=== PATIENT | female | born 1940 | race Caucasian/White ===

== ENCOUNTER 2017-09-12 07:46 | Inpatient (IN) | payer MEDICARE ==
[~2017-09-12] VITALS: Ht 170.2 cm; Wt 95.3 kg
[~2017-09-12 07:46] MED LIST: CALCIUM PO; CINNAMON; LORTAB 7.5-5001 EACH PO; LOVENOX40 MG/0.4 INJ; MOBIC7.5 MG PO; MULTIVITAMIN PO
[2017-09-12] MEDS ORDERED: ONDANSETRON HCL INJ 2 MG/ML VIAL IV STA (07:52)
[2017-09-12] MEDS ORDERED: SODIUM CHLORIDE 0.9% 1000ML 1,000 ML IV STA (07:52)
[2017-09-12] MEDS ORDERED: HYDROMORPHONE 1MG/1ML INJ IV STA (07:52)
[2017-09-12] MEDS ORDERED: DIATRIZOATE MEGL/DIATRIZOA SOD 30 ML BTL PO ONE (08:08)
[2017-09-12] MEDS ORDERED: SODIUM CHLORIDE 0.9% 1000ML 1,000 ML ONE (08:17)
[2017-09-12 08:30] LABS: BASOPHILS % 0.2 % (0.0-1.0); HEMATOCRIT 43.3 % (34.2-44.1); HEMOGLOBIN 14.7 g/dL (12.0-16.0); LYMPHOCYTES # (AUTO) 1.4 (1.0-3.2); LYMPHOCYTES % 7.5 % (18.0-39.1); MEAN CORPUSCULAR HEMOGLOBIN 32.6 pg (28-32); MEAN CORPUSCULAR HGB CONC 33.9 g/dL (31-35); MONOCYTES # (AUTO) 1.3 (0.2-0.8); MONOCYTES % 7.1 % (4.4-11.3); NEUTROPHILS # (AUTO) 15.2 (2.1-6.9); NEUTROPHILS % 84.4 % (38.7-80.0); PLATELET COUNT 213 x10e3/uL (140-360); RED BLOOD COUNT 4.51 x10e6/uL (3.6-5.1); RED CELL DISTRIBUTION WIDTH 12.7 % (11.7-14.4)
[2017-09-12 08:47] LABS: ALBUMIN 3.6 g/dL (3.5-5.0); ALBUMIN/GLOBULIN RATIO 0.8 (0.8-2.0); ANION GAP 15.7 mmol/L (8-16); CALCIUM 9.4 mg/dL (8.4-10.2); CREATININE, SERUM 1.05 mg/dL (0.57-1.11); POTASSIUM 3.7 mmol/L (3.5-5.1)
--- NOTE | 2017-09-12 09:15 | Diagnostic Imaging Report ---
EXAMINATION: CHEST SINGLE (PORTABLE) 09/12/2017 7:52 AM COMPARISON: 06/03/2015 INDICATION: Diverticulitis DISCUSSION: LINES: None. LUNGS: The lungs are well inflated and clear. No pneumonia or pulmonary edema. PLEURA: No pleural effusion or pneumothorax. HEART AND MEDIASTINUM: The cardiomediastinal silhouette is unremarkable. BONES AND SOFT TISSUES: No acute osseous lesion. The soft tissues are normal. IMPRESSION: No acute cardiopulmonary disease. Leroy Stone MD Signed by: Dr. Leroy Stone M.D. on 09/12/2017 9:11 AM
--- NOTE | 2017-09-12 10:48 | Diagnostic Imaging Report ---
EXAM: CT Abdomen and Pelvis WITH contrast INDICATION: Right lower quadrant pain COMPARISON: None. TECHNIQUE: Abdomen and pelvis were scanned utilizing a multidetector helical scanner from the lung base to the ischial tuberosities after administration of IV contrast. Coronal and sagittal reformations were obtained. Routine protocol was performed. Scan was performed when during portal venous phase. IV CONTRAST: 100 mL of Isovue-370 ORAL CONTRAST: Gastroview RADIATION DOSE: Total DLP: 724.25 mGy*cm Estimated effective dose: DLP x 0.015 mSv COMPLICATIONS: None FINDINGS: LINES and TUBES: None. LOWER THORAX: Bibasilar atelectasis and scarlike opacities HEPATOBILIARY: Mild, wedge-shaped focus of enhancement at the periphery of the right hepatic lobe (series 2, image 16) is probably a vascular shunt. Otherwise no focal hepatic lesions. No biliary ductal dilation. GALLBLADDER: No radio-opaque stones or sludge. No wall thickening. SPLEEN: No splenomegaly. PANCREAS: No focal masses or ductal dilatation. ADRENALS: No adrenal nodules KIDNEYS/URETERS: Kidneys enhance symmetrically. No hydronephrosis. No cystic or solid mass lesions. No stones. GI TRACT: The appendix is prominent, with enhancing diane and a diameter of 1.0 cm. There is surrounding fat stranding. There are small foci of extraluminal air and fluid (series 2, image 56 and 59), suspicious for contained perforation. There are numerous diverticula throughout the colon. No bowel obstruction. PELVIC ORGANS/BLADDER: Unremarkable. LYMPH NODES: No lymphadenopathy. VESSELS: There is moderate atherosclerotic disease in the aorta and major arterial branches. There is ectasia of the infrarenal abdominal aorta, measuring up to 3.4 cm. PERITONEUM / RETROPERITONEUM: No free air or fluid. BONES: Multilevel degenerative changes of the thoracic and lumbar spine. SOFT TISSUES: Unremarkable. IMPRESSION: Acute appendicitis with contained perforation. The findings were discussed with Dr. Butler at 10:39 AM on 09/12/2017 Leroy Stone MD Signed by: Dr. Leroy Stone M.D. on 09/12/2017 10:45 AM
[2017-09-12] MEDS ORDERED: CEFOXITIN 2GM/ D5W 50ML 50 ML IV ONE (11:15)
[2017-09-12] MEDS ORDERED: ONDANSETRON HCL INJ 2 MG/ML VIAL IV PRN ×2 (11:15→14:30)
[2017-09-12] MEDS ORDERED: HYDROMORPHONE 1MG/1ML INJ IV PRN ×2 (11:15→23:30)
--- OUTSIDE RECORDS SUMMARY | 2017-09-12 11:44 | XMS REPORT ---
[facility] Address Unknown Phone Unavailable Care Team Providers Care Drag Sawyer Name Role Phone MOODY OCONNOR Unavailable Unavailable Problems This patient has no known problems. Allergies, Adverse Reactions, Alerts This patient has no known allergies or adverse reactions. Medications This patient has no known medications. Results Test Description Test Time Test Comments Text Results Atomic Results Result Comments CHEST SINGLE (PORTABLE) [place] [address] Patient Name: RUBIO BAHENA MR #: [id number] : 1940 Age/Sex: 77/F Req #: [id number] Adm Physician: Ordered by: MOODY OCONNOR MD Report #: [id number] Location: ER Room/Bed: Procedure: [id number] DX/CHEST SINGLE (PORTABLE) Exam Date: 09/12/17 Exam Time: 0900 REPORT STATUS: Signed EXAMINATION: CHEST SINGLE (PORTABLE) 09/12/2017 7:52 AM COMPARISON: 06/03/2015 INDICATION: Diverticulitis DISCUSSION: LINES: None. LUNGS: The lungs are well inflated and clear. No pneumonia or pulmonary edema. PLEURA: No pleural effusion or pneumothorax. HEART AND MEDIASTINUM: The cardiomediastinal silhouette is unremarkable. BONES AND SOFT TISSUES: No acute osseous lesion. The soft tissues are normal. IMPRESSION: No acute cardiopulmonary disease. Gladys Stone MD Signed by: Dr. Gladys Stone M.D. on 09/12/2017 9:11 AM Dictated By: GLADYS STONE MD 0 Transcribed By: MIGNON on 09/12/17910 COPY TO: MOODY OCONNOR MD CT ABDOMEN/PELVIS W [place] [address] Patient Name: RUBIO BAHENA MR #: [id number] : 1940 Age/Sex: 77/F Req #: [id number] [facility] [place] Physician: Ordered by: MOODY OCONNOR MD Report #: [id number] Location: ER Room/Bed: Procedure: [id number] CT/CT ABDOMEN/PELVIS W Exam Date: 09/12/17 Exam Time : 1005 REPORT STATUS: Signed EXAM: CT Abdomen and Pelvis WITH contrast INDICATION: Right lower quadrant pain COMPARISON: None. TECHNIQUE: Abdomen and pelvis were scanned utilizing a multidetector helical scanner from the lung base to the ischial tuberosities after administration of IV contrast. Coronal and sagittal reformations were obtained. Routine protocol was performed. Scan was performed when during portal venous phase. IV CONTRAST: 100 mL of Isovue-370 ORAL CONTRAST: Gastroview RADIATION DOSE: Total DLP: 724.25 mGy*cm Estimated effective dose: DLP x 0.015 mSv COMPLICATIONS: None FINDINGS: LINES and TUBES: None. LOWER THORAX: Bibasilar atelectasis and scarlike opacities HEPATOBILIARY: Mild, wedge-shaped focus of enhancement at the periphery of the right hepatic lobe (series 2, image 16 ) is probably a vascular shunt. Otherwise no focal hepatic lesions. No biliary ductal dilation. GALLBLADDER: No radio-opaque stones or sludge. No wall thickening. SPLEEN: No splenomegaly. PANCREAS: No focal masses or ductal dilatation. ADRENALS: No adrenal nodules KIDNEYS/URETERS: Kidneys enhance symmetrically. No hydronephrosis. No cystic or solid mass lesions. No stones. GI TRACT: The appendix is prominent, with enhancing diane and a diameter of 1.0 cm. There is surrounding fat stranding. There are small foci of extraluminal air and fluid (series 2, image 56 and 59), suspicious for contained perforation. There are numerous diverticula throughout the colon. No bowel obstruction. PELVIC ORGANS/BLADDER: Unremarkable. LYMPH NODES: No lymphadenopathy. VESSELS : There is moderate atherosclerotic disease in the aorta and major arterial branches. There is ectasia of the infrarenal abdominal aorta, measuring up to 3.4 cm. PERITONEUM / RETROPERITONEUM: No free air or fluid. BONES: Multilevel degenerative changes of the thoracic and lumbar spine. SOFT TISSUES: Unremarkable. IMPRESSION: Acute appendicitis with contained perforation. The findings were discussed with Dr. Oconnor at 10:39 AM on 09/12/2017 Gladys Stone MD Signed by: Dr. Gladys Stone M.D. on 09/12/2017 10:45 AM Dictated By: GLADYS STONE MD [id number] Transcribed By: MIGNON on 09/12/17 1045 COPY TO: MOODY OCONNOR MD
[2017-09-12] MEDS: SODIUM CHLORIDE 0.9% 1000ML 1,000 ML IV SCH ×2 (11:49→19:03)
[2017-09-12] MEDS ORDERED: BUPIVACAINE 0.25% 30ML SDV INJ ONE (11:55)
[2017-09-12] MEDS ORDERED: CEFOXITIN 1GM/ DEXTROSE 50ML 100 ML IV ONE (12:04)
[2017-09-12 12:07] LABS: INR 1.16; PROTHROMBIN TIME 13.9 seconds (11.9-14.5)
[2017-09-12 12:08] LABS: PARTIAL THROMBOPLASTIN TIME 30.3 seconds (23.8-35.5)
[2017-09-12] MEDS ORDERED: CEFOXITIN SODIUM 2 G/VIAL IV ONE (12:30)
[2017-09-12] MEDS ORDERED: SODIUM CHLORIDE 0.9% 50ML 50 ML ONE (12:49)
[2017-09-12] MEDS ORDERED: IOPAMIDOL 370 MG/ML 200 ML INFUS..BTL INJ ONE (12:50)
[2017-09-12] MEDS ORDERED: CEFOXITIN 1GM/ DEXTROSE 50ML 50 ML IV SCH (14:00)
[2017-09-12] MEDS ORDERED: CEFOXITIN SOD 1 GM VIAL IV SCH (14:00)
[2017-09-12] MEDS: D5.45%NS/KCL 20MEQ 1,000 ML IV SCH ×2 (14:22→21:35)
[2017-09-12] MEDS ORDERED: CEFTRIAXONE SOD 1 GM VIAL IV SCH (14:30)
[2017-09-12 15:59] VITALS: BP 110/54
[2017-09-12] MEDS ORDERED: ROCURONIUM BROMIDE 10 MG/ML 5ML VIAL ONE (16:02)
[2017-09-12] MEDS ORDERED: ONDANSETRON HCL INJ 2 MG/ML VIAL ONE (16:02)
[2017-09-12] MEDS ORDERED: LIDOCAINE HCL 2% JELLY 5 ML TUBE ONE (16:02)
[2017-09-12] MEDS ORDERED: LIDOCAINE HCL 2% LOCAL INJ 5 ML SDV VIAL INJ ONE (16:02)
[2017-09-12] MEDS ORDERED: ACETAMINOPHEN 1000 MG/100 ML IV ONE (16:02)
[2017-09-12] MEDS ORDERED: PROPOFOL IV EMULSION 10 MG/ML 20 ML VIAL ONE (16:02)
[2017-09-12] MEDS ORDERED: GLYCOPYRROLATE INJ 1MG/ 5 ML SYR ONE (16:02)
[2017-09-12] MEDS ORDERED: NEOSTIGMINE 5 MG/5ML SYR ONE (16:02)
[2017-09-12] MEDS ORDERED: SEVOFLURANE INHAL SOLN 250 ML PEN BTL ONE (16:02)
[2017-09-12 16:16] VITALS: BP 110/54
[2017-09-12 16:29] VITALS: BP 110/54
[2017-09-12] MEDS: PANTOPRAZOLE 40 MG 10ML VIAL IV SCH (17:22)
[2017-09-12] MEDS: METRONIDAZOLE 500MG/NS 100ML 100 ML IV SCH (17:23)
--- NOTE | 2017-09-12 17:38 | Operative Report ---
DATE OF PROCEDURE: September 12, 2017 PREOPERATIVE DIAGNOSIS: Acute appendicitis with localized perforation. POSTOPERATIVE DIAGNOSES 1. Acute appendicitis with localized perforation. 2. Pelvic abscess and pelvic peritonitis. OPERATIONS PERFORMED: Laparoscopic appendectomy and peritoneal irrigation. ANESTHESIA: General endotracheal. ESTIMATED BLOOD LOSS: Minimal. DRAINS: None. COMPLICATIONS: None. INDICATIONS AND FINDINGS: A 77-year-old otherwise healthy female admitted with abdominal pain through the emergency room. The patient stated that she had right lower quadrant pain about 2 weeks ago, attributed to history of diverticulitis that she had, and it got better and paid no attention. Three days ago, it got worse and today it even increased in intensity, reason for which she came to the emergency room. Emergency room the workup revealed by CAT scan appendicitis with localized perforation in the right lower quadrant. White count was 18,000. 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 The appendix was necrotic and perforated, almost liquified in its distal three-fourths. The perforation appeared to be located distal to the appendiceal cecal junction so that we were able to transect the appendix through a soft and pliable cecum. Because of the gangrene, we had to remove the appendix piecemeal in several different pieces. All attempts were made to prevent any tissue left behind. A 10 mm flat Kieran-Doshi drain was placed to drain the gutter and pelvic cavity, brought out through the right lower quadrant trocar site. The family was informed postoperatively of the findings. They are aware that the possibility of postoperative complications such as abscess formation and small bowel obstruction are significantly increased due to the pathology of this case. DESCRIPTION OF THE PROCEDURE: With the patient lying on the operative table in the supine position, after administration of general endotracheal anesthesia, she was prepped and draped for laparoscopic appendectomy. The procedure was begun by establishing the pneumoperitoneum in the umbilical site after a stab wound was made at that location and the saline drop test was performed. Pneumoperitoneum was insufflated to 15 mm of pressure and then, the 10/11 trocar placed in that location. We eventually placed a 11/12 trocar in the right upper quadrant and a 5 mm trocar in the right lower quadrant. We began the dissection by mobilizing the cecum and the omentum from the abdominal right lateral wall until we were able to initially identify the tip of the appendix gangrenous in the pelvis. We continued the mobilization along the white line and the right border until we identified the ascending colon both laterally and medially as well as the ileocecal junction. We then mobilized enough the cecum and ascending colon to be able to staple the base of the appendix across the cecum where it was soft and pliable with the Endo AMY with the blue load. We continued the dissection retrogradely. The mesoappendix was mobilized and the blood supply to the appendix was taken down that with electrocautery in different layers as there was not a point where it could be cleanly stapled with the Endo AMY. After we detached the appendix, as we continued the dissection mobilizing the cecum and the appendix at some point, the cecum and the proximal appendix from the distal part of the appendix. The distal part of the appendix was pretty much macerated and almost liquified. We then removed the proximal appendix by placing it in an endobag and pulling it out through the 11/12 trocar and then, we identified the tip of the appendix stuck to the lateral wall and the pelvis and then mobilized it proximally until we were able to detach the remnant part of the appendix from the retroperitoneum. We diligently removed all remaining appendiceal tissue. We then placed it in an endobag and removed it through the same trocar. We then copiously irrigated the pelvis and right lower quadrant with saline solution. We ascertained there was no bleeding and no bowel injury. We then placed a 10 mm flat Kieran-Doshi drain to drain the right gutter and pelvis and the appendiceal bed and brought it out through the right lower quadrant trocar 5 mm size and secured it there with 2-0 silk and connected it to self suction. We inspected the operative field, irrigated it again. There was no bleeding and there was no evidence of bile leakage. At that point, we released the pneumoperitoneum and closed the umbilical 10/11 trocar as well as the right upper quadrant 11/12 trocar with 0 Vicryl. The wounds were copiously irrigated with saline and then, the skin of all the ports was closed using karla. Sterile dressing was applied. The patient tolerated the procedure well and taken to recovery room in stable condition. Job#: [id number] PAT
[2017-09-12] MEDS: HYDROMORPHONE 1MG/1ML INJ IV PRN (18:36)
[2017-09-12 20:09] VITALS: BP 103/53
[2017-09-12 21:44] VITALS: BP 103/53
[2017-09-12] MEDS ORDERED: ACETAMINOPHEN 1000 MG/100 ML IV PRN (23:30)
[2017-09-13] MEDS: CEFTRIAXONE SOD 1 GM VIAL IV SCH ×3 (00:05→23:17)
[2017-09-13 00:06] VITALS: BP 100/55
[2017-09-13] MEDS: METRONIDAZOLE 500MG/NS 100ML 100 ML IV SCH ×5 (00:10→23:17)
[2017-09-13] MEDS: SODIUM CHLORIDE 0.9% 1000ML 1,000 ML IV SCH ×2 (03:03→11:03)
[2017-09-13 04:00] VITALS: BP 93/54
[2017-09-13] MEDS: HYDROMORPHONE 1MG/1ML INJ IV PRN ×3 (06:35→18:49)
[2017-09-13 07:30] LABS: BASOPHILS # (AUTO) 0.1 (0.0-0.1); BASOPHILS % 0.5 % (0.0-1.0); EOSINOPHILS # (AUTO) 0.1 (0.0-0.4); EOSINOPHILS % 0.5 % (0.0-6.0); HEMOGLOBIN 11.1 g/dL (12.0-16.0); LYMPHOCYTES # (AUTO) 1.6 (1.0-3.2); LYMPHOCYTES % 16.6 % (18.0-39.1); MEAN CORPUSCULAR HEMOGLOBIN 32.5 pg (28-32); MEAN CORPUSCULAR HGB CONC 32.6 g/dL (31-35); MEAN CORPUSCULAR VOLUME 99.4 fL (81-99); MONOCYTES # (AUTO) 0.7 (0.2-0.8); MONOCYTES % 6.8 % (4.4-11.3); NEUTROPHILS # (AUTO) 7.2 (2.1-6.9); NEUTROPHILS % 75.1 % (38.7-80.0); PLATELET COUNT 151 x10e3/uL (140-360); RED BLOOD COUNT 3.42 x10e6/uL (3.6-5.1); RED CELL DISTRIBUTION WIDTH 13.1 % (11.7-14.4)
[2017-09-13 07:54] LABS: ANION GAP 10.7 mmol/L (8-16); BLOOD UREA NITROGEN 10 mg/dL (7-26); BUN/CREATININE RATIO 14 (6-25); CARBON DIOXIDE 23 mmol/L (22-29); CHLORIDE 108 mmol/L (98-107); CREATININE, SERUM 0.69 mg/dL (0.57-1.11); EST GLOMERULAR FILTRATION RATE > 60 ML/MIN (60-); GLUCOSE 125 mg/dL (74-118); POTASSIUM 3.7 mmol/L (3.5-5.1); SODIUM 138 mmol/L (136-145)
[2017-09-13 07:59] VITALS: BP 99/52
--- NOTE | 2017-09-13 08:44 | History and Physical ---
CHIEF COMPLAINT: Intense abdominal pain. HISTORY OF PRESENT ILLNESS: This is a 77-year-old white woman who presented to [facility] with a 2-week history of worsening right lower quadrant abdominal pain. The patient became much worse 2 days prior to admission and unbearable on the day of admission. Soon after admission, the patient was found to have acute appendicitis with local perforation and pelvic peritonitis. The patient was seen by her general surgeon, namely Dr. Randal Hilario, who performed successful laparoscopic appendectomy and peritoneal irrigation. After the surgery, the patient had a Kieran-Doshi drain placed. On admission, the patient's white blood cell count was 18,000 with 84% segmented neutrophils. Today's white blood cell count is 9500 with 75% segmented neutrophils. The patient's BUN and creatinine on admission was 14 and 1.05 respectively. Today, it is 10 and 0.69 respectively. On admission, the patient did undergo a CT of the abdomen and pelvis prior to surgery that revealed acute appendicitis with a contained perforation. The patient was admitted for further evaluation and treatment. REVIEW OF SYSTEMS: GENERAL: The patient was experiencing fever and chills for 2 days prior to admission. Weight has been stable. HEENT: No headaches. No visual changes. CARDIOVASCULAR/RESPIRATORY: No chest pain. GI: Right lower quadrant abdominal pain for 2 weeks. Much worse in the last 2 days prior to admission. The patient has had no appetite for 2 weeks also. : No UTI symptoms. NEUROMUSCULAR: No limb weakness or numbness. PAST MEDICAL HISTORY 1. Obesity. 2. Lumbar disk disease. 3. Hypertriglyceridemia. 4. Prediabetes. 5. Hypertensive heart disease. 6. Bilateral knee arthritis. 7. Statin intolerance. 8. Diverticular disease. PAST SURGICAL HISTORY 1. 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 2. Right total knee replacement in July of 2013. 3. Laparoscopic appendectomy performed yesterday, September 12, 2017. ALLERGIES 1. SULFA. 2. LEVOFLOXACIN. FAMILY HISTORY: Noncontributory. SOCIAL HISTORY: The woman is . She lives alone. The patient is currently retired. No history of tobacco or alcohol use, but she was exposed to second-hand tobacco smoke throughout her life. HOME MEDICATIONS: 1. Multivitamins once daily. 2. Vitamin B12 500 mcg daily. 3. [place]-3 fish oil 2000 mg bid. 4. Biotin one daily. 5. Calcium-Vitamin D3 one daily. 6. Aspirin 81 mg daily. 7. Vitamin D3 2000 units daily. 8. Fluoxetine 20 mg daily. PHYSICAL EXAMINATION GENERAL: She is awake, alert and fully oriented. No distress. Very pleasant and cooperative with exam. Her adult daughter is at bedside. VITALS: Blood pressure at this time is 99/52, pulse 82, respiratory rate 18, temperature 98.1. The patient's temperature did get as high as 100.8 at midnight early this morning. The patient's height is 5 feet 7 inches, weight 210 pounds, calculated body mass index 33. INTEGUMENT: Skin is warm and dry. No pallor of conjunctivae. HEENT: Anicteric sclerae. Moist mucous membranes. NECK: Supple. CARDIOVASCULAR: Regular rate and rhythm. LUNGS: No rales. No rhonchi. ABDOMEN: Soft. Normal bowel sounds appreciated. The patient has a Kieran-Doshi drain in the right lower quadrant. EXTREMITIES: No edema or deformity. NEUROLOGIC: Intact. DIAGNOSES 1. Sepsis secondary to acute perforated appendicitis with peritonitis. 2. Status post laparoscopic appendectomy. 3. Prediabetes. PLAN 1. Intravenous fluids. 2. Follow renal function. 3. Intravenous antibiotics. 4. Mobilize with physical therapy. 5. Encourage incentive spirometer usage to prevent atelectasis. 6. Advance diet as per surgery. I spent an hour in the care of the patient. Job#: [id number] KEVIN NOEL
[2017-09-13] MEDS: D5.45%NS/KCL 20MEQ 1,000 ML IV SCH ×2 (10:22→22:53)
[2017-09-13 12:36] VITALS: BP 118/60
[2017-09-13] MEDS: PANTOPRAZOLE 40 MG 10ML VIAL IV SCH (14:30)
[2017-09-13] MEDS ORDERED: FENTANYL CITRATE/PF 100MCG/2 ML INJ ONE (14:54)
[2017-09-13 17:00] VITALS: BP 102/58
[2017-09-13 20:00] VITALS: BP 103/58
[2017-09-14] VITALS (7 sets, daily range): BP systolic 102–124; BP diastolic 50–61
[2017-09-14] MEDS: HYDROMORPHONE 1MG/1ML INJ IV PRN ×2 (04:19→09:28)
[2017-09-14] MEDS: METRONIDAZOLE 500MG/NS 100ML 100 ML IV SCH ×4 (05:50→23:39)
[2017-09-14] MEDS ORDERED: ENOXAPARIN 30 MG/0.3 ML SYR SC NR (06:30)
[2017-09-14 06:50] LABS: BASOPHILS % 0.5 % (0.0-1.0); EOSINOPHILS # (AUTO) 0.1 (0.0-0.4); EOSINOPHILS % 1.7 % (0.0-6.0); HEMATOCRIT 32.9 % (34.2-44.1); HEMOGLOBIN 10.8 g/dL (12.0-16.0); LYMPHOCYTES # (AUTO) 1.8 (1.0-3.2); MEAN CORPUSCULAR HEMOGLOBIN 32.6 pg (28-32); MEAN CORPUSCULAR HGB CONC 32.8 g/dL (31-35); MEAN CORPUSCULAR VOLUME 99.4 fL (81-99); MONOCYTES # (AUTO) 0.7 (0.2-0.8); MONOCYTES % 8.9 % (4.4-11.3); NEUTROPHILS # (AUTO) 5.3 (2.1-6.9); NEUTROPHILS % 65.5 % (38.7-80.0); PLATELET COUNT 156 x10e3/uL (140-360); RED BLOOD COUNT 3.31 x10e6/uL (3.6-5.1); RED CELL DISTRIBUTION WIDTH 12.7 % (11.7-14.4)
[2017-09-14 07:16] LABS: ALANINE AMINOTRANSFERASE 7 IU/L (0-55); ALBUMIN 2.2 g/dL (3.5-5.0); ALBUMIN/GLOBULIN RATIO 0.6 (0.8-2.0); ALKALINE PHOSPHATASE 59 IU/L (40-150); ANION GAP 11.2 mmol/L (8-16); BLOOD UREA NITROGEN 6 mg/dL (7-26); BUN/CREATININE RATIO 9 (6-25); CALCIUM 8.3 mg/dL (8.4-10.2); CARBON DIOXIDE 24 mmol/L (22-29); CHLORIDE 104 mmol/L (98-107); CREATININE, SERUM 0.67 mg/dL (0.57-1.11); EST GLOMERULAR FILTRATION RATE > 60 ML/MIN (60-); GLUCOSE 131 mg/dL (74-118); POTASSIUM 4.2 mmol/L (3.5-5.1); SODIUM 135 mmol/L (136-145)
[2017-09-14 11:48] LABS: BILIRUBIN,URINE NEGATIVE (NEGATIVE); KETONES,URINE NEGATIVE (NEGATIVE); LEUKOCYTE ESTERASE ,URINE 2+ (NEGATIVE); NITRITE,URINE NEGATIVE (NEGATIVE); PROTEIN,URINE DIPSTICK NEGATIVE (NEGATIVE); URINE UROBILINOGEN 0.2 mg/dL (0.2 - 1)
[2017-09-14 11:50] LABS: CLARITY,URINE SL CLOUDY (CLEAR); COLOR,URINE YELLOW (YELLOW)
[2017-09-14 11:57] LABS: BACTERIA,URINE RARE /HPF; EPITHELIAL CELLS,URINE FEW /LPF
[2017-09-14] MEDS: CEFTRIAXONE SOD 1 GM VIAL IV SCH ×2 (12:00→23:38)
[2017-09-14] MEDS: D5.45%NS/KCL 20MEQ 1,000 ML IV SCH (12:49)
[2017-09-14] MEDS: PANTOPRAZOLE 40 MG 10ML VIAL IV SCH (14:30)
[2017-09-14] MEDS ORDERED: HYDROMORPHONE 1MG/1ML INJ IV PRN (15:15)
[2017-09-14] MEDS: HYDROCODONE/APAP 5MG-325MG TAB PO PRN (20:29)
[2017-09-15] VITALS (8 sets, daily range): BP systolic 99–127; BP diastolic 51–64
[2017-09-15] MEDS: D5.45%NS/KCL 20MEQ 1,000 ML IV SCH (02:08)
[2017-09-15] MEDS: METRONIDAZOLE 500MG/NS 100ML 100 ML IV SCH ×4 (05:04→23:27)
[2017-09-15] MEDS: HYDROCODONE/APAP 5MG-325MG TAB PO PRN ×3 (06:48→15:55)
[2017-09-15 07:12] LABS: BASOPHILS % 0.5 % (0.0-1.0); EOSINOPHILS # (AUTO) 0.3 (0.0-0.4); EOSINOPHILS % 3.9 % (0.0-6.0); HEMATOCRIT 33.5 % (34.2-44.1); LYMPHOCYTES # (AUTO) 1.1 (1.0-3.2); LYMPHOCYTES % 16.9 % (18.0-39.1); MEAN CORPUSCULAR HEMOGLOBIN 32.4 pg (28-32); MEAN CORPUSCULAR HGB CONC 32.8 g/dL (31-35); MEAN CORPUSCULAR VOLUME 98.5 fL (81-99); MONOCYTES # (AUTO) 0.6 (0.2-0.8); MONOCYTES % 9.9 % (4.4-11.3); NEUTROPHILS # (AUTO) 4.3 (2.1-6.9); NEUTROPHILS % 68.5 % (38.7-80.0); PLATELET COUNT 188 x10e3/uL (140-360); RED CELL DISTRIBUTION WIDTH 12.5 % (11.7-14.4)
[2017-09-15 07:36] LABS: ALANINE AMINOTRANSFERASE 8 IU/L (0-55); ALBUMIN 2.3 g/dL (3.5-5.0); ALBUMIN/GLOBULIN RATIO 0.6 (0.8-2.0); ALKALINE PHOSPHATASE 60 IU/L (40-150); ANION GAP 12.7 mmol/L (8-16); BLOOD UREA NITROGEN 5 mg/dL (7-26); BUN/CREATININE RATIO 8 (6-25); CALCIUM 8.3 mg/dL (8.4-10.2); CARBON DIOXIDE 25 mmol/L (22-29); CHLORIDE 107 mmol/L (98-107); EST GLOMERULAR FILTRATION RATE > 60 ML/MIN (60-); GLUCOSE 123 mg/dL (74-118); POTASSIUM 3.7 mmol/L (3.5-5.1); SODIUM 141 mmol/L (136-145)
[2017-09-15] MEDS: CEFTRIAXONE SOD 1 GM VIAL IV SCH ×2 (11:43→23:27)
[2017-09-15] MEDS: PANTOPRAZOLE 40 MG 10ML VIAL IV SCH (13:39)
[2017-09-15] MEDS: ENOXAPARIN 30 MG/0.3 ML SYR SC SCH (17:22)
[2017-09-15] MEDS ORDERED: ACETAMINOPHEN 325 MG TAB PO PRN (21:30)
[2017-09-16] VITALS (8 sets, daily range): BP systolic 108–145; BP diastolic 53–68
[2017-09-16] MEDS: METRONIDAZOLE 500MG/NS 100ML 100 ML IV SCH ×3 (06:36→17:05)
[2017-09-16 07:12] LABS: BASOPHILS # (AUTO) 0.1 (0.0-0.1); BASOPHILS % 0.7 % (0.0-1.0); EOSINOPHILS # (AUTO) 0.3 (0.0-0.4); EOSINOPHILS % 3.5 % (0.0-6.0); HEMOGLOBIN 12.6 g/dL (12.0-16.0); LYMPHOCYTES # (AUTO) 1.4 (1.0-3.2); MEAN CORPUSCULAR HEMOGLOBIN 32.1 pg (28-32); MEAN CORPUSCULAR HGB CONC 33.2 g/dL (31-35); MEAN CORPUSCULAR VOLUME 96.7 fL (81-99); MONOCYTES # (AUTO) 0.7 (0.2-0.8); MONOCYTES % 9.1 % (4.4-11.3); NEUTROPHILS % 67.2 % (38.7-80.0); PLATELET COUNT 241 x10e3/uL (140-360); RED BLOOD COUNT 3.93 x10e6/uL (3.6-5.1); RED CELL DISTRIBUTION WIDTH 12.3 % (11.7-14.4)
[2017-09-16 07:26] LABS: ANION GAP 14.5 mmol/L (8-16); BLOOD UREA NITROGEN 5 mg/dL (7-26); BUN/CREATININE RATIO 8 (6-25); CALCIUM 8.9 mg/dL (8.4-10.2); CARBON DIOXIDE 24 mmol/L (22-29); CHLORIDE 106 mmol/L (98-107); CREATININE, SERUM 0.63 mg/dL (0.57-1.11); EST GLOMERULAR FILTRATION RATE > 60 ML/MIN (60-); GLUCOSE 136 mg/dL (74-118); POTASSIUM 3.5 mmol/L (3.5-5.1); SODIUM 141 mmol/L (136-145)
[2017-09-16] MEDS: CEFTRIAXONE SOD 1 GM VIAL IV SCH (11:43)
[2017-09-16] MEDS ORDERED: NEOMYCIN/POLYMYX/BACITR OINT 0.9 GM PKT TOP NR (12:30)
[2017-09-16] MEDS: PANTOPRAZOLE 40 MG 10ML VIAL IV SCH (14:01)
[2017-09-16] MEDS: ENOXAPARIN 30 MG/0.3 ML SYR SC SCH (17:05)
[2017-09-17] VITALS: BP 92/53
[2017-09-17] MEDS: CEFTRIAXONE SOD 1 GM VIAL IV SCH (01:14)
[2017-09-17] MEDS: METRONIDAZOLE 500MG/NS 100ML 100 ML IV SCH ×2 (01:14→05:37)
[2017-09-17 02:40] VITALS: BP 145/68
[2017-09-17 04:00] VITALS: BP 115/65
[2017-09-17 07:58] VITALS: BP 134/64
[2017-09-17 08:23] VITALS: BP 134/64
--- NOTE | 2017-09-17 08:57 | Discharge Summary ---
ADMIT DIAGNOSES 1. Sepsis secondary to acute perforated appendicitis with peritonitis. 2. Status post laparoscopic appendectomy. 3. Prediabetes. DISCHARGE DIAGNOSES 1. Status post laparoscopic appendectomy. 2. Sepsis secondary to Escherichia coli peritonitis, resolved. 3. Escherichia coli peritonitis, resolving. HOSPITAL COURSE: This is a 77-year-old white woman who was initially admitted to [facility] with the diagnosis of sepsis secondary to acute perforated appendix with peritonitis. During this hospitalization, the patient was actually found to have E. coli peritonitis. The patient underwent successful laparoscopic appendectomy during this hospitalization, which was performed by her surgeon, namely Dr. Lopez Hilario. The patient's hospitalization was unremarkable. The patient improved clinically after surgery and with intravenous antibiotics, namely metronidazole and ceftriaxone. The peritoneal cultures performed during this hospitalization did reveal 2 strains of E. coli bacterial species, but both were found to be pansensitive. The patient's hospitalization was unremarkable. The patient's sepsis resolved during this hospitalization. On admission, the patient's white blood cell count was 18,000 with 84% segmented neutrophils. On the day of discharge, the patient's white blood cell count was 7300 with 67% segmented neutrophils. The patient's condition on discharge was stable. On discharge, the patient was tolerating a regular diet. The patient also had a Kieran-Doshi drain placed during her surgery, but it was removed prior to discharge. DISCHARGE MEDICATIONS 1. Tramadol 50 mg 1 every 6 hours p.r.n. pain, 30 prescribed. 2. Augmentin 500 mg 1 p.o. t.i.d. for 5 days. 3. Multivitamins once daily. 4. Vitamin B12 500 mcg daily. 5. [place]-3 Fish Oil 2000 mg b.i.d. 6. Biotin once daily. 7. Calcium with vitamin D once daily. 8. Aspirin 81 mg daily. 9. Vitamin D3 2000 units daily. 10. Fluoxetine 20 mg daily. FOLLOWUP INSTRUCTIONS: The patient was instructed to follow up with Dr. Lopez Hilario in 1 week, and follow up with her attending, namely myself, Dr. Leann Boyle within 2 weeks. The patient was also told not to operate a motor vehicle when taking tramadol until she sees how this medication reacts. LEANN BOYLE MD Job#: [id number] RI cc:LOPEZ HILARIO MD
== END 2017-09-17 09:55 | disposition home or self-care (01) | DRG 853 ==
LOC: ER 07:46 → ERHOLD 11:41 → UNDOADMIN 11:41 → OR 11:54 → MED/SURG 14:25
PROVIDERS: ADMIT Internal Medicine; ATTEND Internal Medicine
PROC: 0DTJ4ZZ Resection of Appendix, Percutaneous Endoscopic Approach (ICD-10-PCS; 2017-09-12)
PROC: 0W9G4ZX Drainage of Peritoneal Cavity, Percutaneous Endoscopic Approach, Diagnostic (ICD-10-PCS; principal; 2017-09-12 12:00)
DX: A41.9 Sepsis, unspecified organism (principal); K35.2 Acute appendicitis with generalized peritonitis; I11.9 Hypertensive heart disease without heart failure; R73.09 Other abnormal glucose; B96.20 Unspecified Escherichia coli [E. coli] as the cause of diseases classified elsewhere; E66.9 Obesity, unspecified; Z68.32 Body mass index [BMI] 32.0-32.9, adult; M51.36 Other intervertebral disc degeneration, lumbar region
CPT/HCPCS: 36415; 71045; 74177; 80048; 80053; 81001; 82150; 83690; 85025; 85610; 85730; 87040; 87071; 87075; 87086; 87186; 87205; 88304; 93005; 99284; C1766; J0694; J0696; J1170; J1650; J2001; J2405; J7030; Q9967

== ENCOUNTER 2021-04-11 13:02 | Observation (INO) | payer MEDICARE ==
[~2021-04-11] VITALS: Ht 172.7 cm; Wt 90.3 kg
[2021-04-11 13:35] LABS: BASOPHILS # (AUTO) 0.1 (0.0-0.1); BASOPHILS % 0.9 % (0.0-1.0); EOSINOPHILS # (AUTO) 0.1 (0.0-0.4); EOSINOPHILS % 1.6 % (0.0-6.0); HEMATOCRIT 41.1 % (34.2-44.1); HEMOGLOBIN 13.1 g/dL (12.0-16.0); LYMPHOCYTES # (AUTO) 2.9 (1.0-3.2); LYMPHOCYTES % 41.4 % (18.0-39.1); MEAN CORPUSCULAR HEMOGLOBIN 31.9 pg (28-32); MEAN CORPUSCULAR HGB CONC 31.9 g/dL (31-35); MONOCYTES # (AUTO) 0.5 (0.2-0.8); MONOCYTES % 7.7 % (4.4-11.3); NEUTROPHILS # (AUTO) 3.4 (2.1-6.9); NEUTROPHILS % 48.1 % (38.7-80.0); PLATELET COUNT 249 x10e3/uL (140-360); RED BLOOD COUNT 4.11 x10e6/uL (3.6-5.1); RED CELL DISTRIBUTION WIDTH 12.1 % (11.7-14.4)
[2021-04-11 13:53] LABS: INR 0.91; PARTIAL THROMBOPLASTIN TIME 27.5 seconds (23.8-35.5); PROTHROMBIN TIME 12.5 seconds (11.9-14.5)
[2021-04-11 13:58] LABS: ALANINE AMINOTRANSFERASE 8 IU/L (0-55); ALBUMIN 3.6 g/dL (3.5-5.0); ALBUMIN/GLOBULIN RATIO 0.9 (0.8-2.0); ALKALINE PHOSPHATASE 60 IU/L (40-150); ANION GAP 15.9 mmol/L (8-16); BLOOD UREA NITROGEN 12 mg/dL (7-26); BUN/CREATININE RATIO 16 (6-25); CALCIUM 9.4 mg/dL (8.4-10.2); CARBON DIOXIDE 24 mmol/L (22-29); CHLORIDE 104 mmol/L (98-107); CREATINE KINASE 52 IU/L (29-168); CREATININE, SERUM 0.74 mg/dL (0.57-1.11); EST GLOMERULAR FILTRATION RATE 75 ML/MIN (60-); GLUCOSE 116 mg/dL (74-118); POTASSIUM 3.9 mmol/L (3.5-5.1); SODIUM 140 mmol/L (136-145)
[2021-04-11] MEDS ORDERED: SODIUM CHLORIDE 0.9% 100 ML ONE (15:16)
[2021-04-11] MEDS ORDERED: IOPAMIDOL 370 MG/ML 200 ML INFUS..BTL INJ ONE (15:18)
[2021-04-11] MEDS ORDERED: SODIUM CHLORIDE 0.9% 1000ML 1,000 ML IV STA (15:36)
[2021-04-11] MEDS ORDERED: SODIUM CHLORIDE 0.9% 1000ML 1,000 ML IV SCH (16:00)
[2021-04-11 16:07] LABS: CLARITY,URINE CLEAR (CLEAR); COLOR,URINE YELLOW (YELLOW); KETONES,URINE NEGATIVE (NEGATIVE); LEUKOCYTE ESTERASE ,URINE SMALL (NEGATIVE); NITRITE,URINE NEGATIVE (NEGATIVE); PROTEIN,URINE DIPSTICK NEGATIVE (NEGATIVE); URINE UROBILINOGEN 0.2 mg/dL (0.2 - 1)
[2021-04-11 16:23] LABS: BACTERIA,URINE FEW /HPF; EPITHELIAL CELLS,URINE FEW /LPF; RBC,URINE 0-5 /HPF (0-5); RENAL EPITHELIAL CELLS,URINE FEW; TRANSITIONAL EPI CELLS,URINE FEW; WBC,URINE (MAN) 21-50 /HPF (0-5)
[2021-04-11] MEDS ORDERED: CEFTRIAXONE 1 GM in SODIUM CHLORIDE 0.9% 50ML 50 ML IV SCH (16:30)
[2021-04-11 18:00] VITALS: BP 112/70
[2021-04-11] MEDS: CEFTRIAXONE 1 GM in SODIUM CHLORIDE 0.9% 50ML 50 ML IV SCH (18:30)
[2021-04-11] MEDS ORDERED: DEXTROSE 50% SYRINGE 50 ML IV PRN (18:30)
[2021-04-11 19:04] LABS: BASOPHILS % 0.8 % (0.0-1.0); EOSINOPHILS # (AUTO) 0.1 (0.0-0.4); EOSINOPHILS % 2.1 % (0.0-6.0); HEMATOCRIT 36.4 % (34.2-44.1); HEMOGLOBIN 11.9 g/dL (12.0-16.0); LYMPHOCYTES # (AUTO) 2.2 (1.0-3.2); LYMPHOCYTES % 42.2 % (18.0-39.1); MEAN CORPUSCULAR HEMOGLOBIN 32.6 pg (28-32); MEAN CORPUSCULAR HGB CONC 32.7 g/dL (31-35); MEAN CORPUSCULAR VOLUME 99.7 fL (81-99); MONOCYTES # (AUTO) 0.4 (0.2-0.8); MONOCYTES % 8.5 % (4.4-11.3); NEUTROPHILS # (AUTO) 2.4 (2.1-6.9); NEUTROPHILS % 46.2 % (38.7-80.0); PLATELET COUNT 217 x10e3/uL (140-360); RED BLOOD COUNT 3.65 x10e6/uL (3.6-5.1); RED CELL DISTRIBUTION WIDTH 12.2 % (11.7-14.4)
[2021-04-11 20:46] VITALS: BP 113/67
[2021-04-11 21:00] VITALS: BP 113/67
[2021-04-11] MEDS ORDERED: PEG (High)/E-LYTE SOLN 4,000 ML BTL PO ONE (22:30)
[2021-04-11 23:52] VITALS: BP 117/96
[2021-04-12] VITALS (8 sets, daily range): BP systolic 93–127; BP diastolic 57–72
[2021-04-12 04:59] LABS: BASOPHILS # (AUTO) 0.1 (0.0-0.1); BASOPHILS % 0.8 % (0.0-1.0); EOSINOPHILS # (AUTO) 0.1 (0.0-0.4); EOSINOPHILS % 0.9 % (0.0-6.0); HEMATOCRIT 35.9 % (34.2-44.1); HEMOGLOBIN 11.8 g/dL (12.0-16.0); LYMPHOCYTES # (AUTO) 2.5 (1.0-3.2); LYMPHOCYTES % 32.9 % (18.0-39.1); MEAN CORPUSCULAR HEMOGLOBIN 32.7 pg (28-32); MEAN CORPUSCULAR HGB CONC 32.9 g/dL (31-35); MEAN CORPUSCULAR VOLUME 99.4 fL (81-99); MONOCYTES # (AUTO) 0.5 (0.2-0.8); NEUTROPHILS # (AUTO) 4.4 (2.1-6.9); NEUTROPHILS % 58.1 % (38.7-80.0); PLATELET COUNT 237 x10e3/uL (140-360); RED BLOOD COUNT 3.61 x10e6/uL (3.6-5.1); RED CELL DISTRIBUTION WIDTH 12.4 % (11.7-14.4)
[2021-04-12 05:09] LABS: INR 0.95; PROTHROMBIN TIME 12.9 seconds (11.9-14.5)
[2021-04-12 06:42] LABS: ANION GAP 12.9 mmol/L (8-16); CALCIUM 8.4 mg/dL (8.4-10.2); CHOL/HDL RATIO 3.4 (3.0-3.6); CREATININE, SERUM 0.68 mg/dL (0.57-1.11)
[2021-04-12 06:46] LABS: POTASSIUM 4.9 mmol/L (3.5-5.1)
[2021-04-12 07:04] LABS: THYROID STIMULATING HORMONE 1.234 uIU/mL (0.350-4.940)
[2021-04-12] MEDS: SODIUM CHLORIDE 0.9% 1000ML 1,000 ML IV SCH (08:45)
[2021-04-12] MEDS ORDERED: INSULIN LISPRO 100 UNIT/1 ML 3ML VIAL SQ SCH (11:30)
[2021-04-12] MEDS ORDERED: DEXTROSE 50% SYRINGE 50 ML IV PRN (12:15)
[2021-04-12] MEDS ORDERED: METFORMIN PO (12:17)
[2021-04-12] MEDS ORDERED: ZETIA10 MG PO (12:17)
[2021-04-12 14:22] LABS: BASOPHILS % 0.8 % (0.0-1.0); EOSINOPHILS # (AUTO) 0.1 (0.0-0.4); EOSINOPHILS % 1.7 % (0.0-6.0); HEMATOCRIT 32.6 % (34.2-44.1); HEMOGLOBIN 10.3 g/dL (12.0-16.0); LYMPHOCYTES # (AUTO) 2.2 (1.0-3.2); LYMPHOCYTES % 41.7 % (18.0-39.1); MEAN CORPUSCULAR HGB CONC 31.6 g/dL (31-35); MEAN CORPUSCULAR VOLUME 101.2 fL (81-99); MONOCYTES # (AUTO) 0.4 (0.2-0.8); MONOCYTES % 8.4 % (4.4-11.3); NEUTROPHILS # (AUTO) 2.5 (2.1-6.9); PLATELET COUNT 204 x10e3/uL (140-360); RED BLOOD COUNT 3.22 x10e6/uL (3.6-5.1); RED CELL DISTRIBUTION WIDTH 12.3 % (11.7-14.4)
[2021-04-12] MEDS: INSULIN LISPRO 100 UNIT/1 ML 3ML VIAL SQ SCH ×2 (16:30→21:21)
[2021-04-12] MEDS: CEFTRIAXONE 1 GM in SODIUM CHLORIDE 0.9% 50ML 50 ML IV SCH (18:40)
[2021-04-12 20:08] LABS: BASOPHILS # (AUTO) 0.1 (0.0-0.1); BASOPHILS % 0.8 % (0.0-1.0); EOSINOPHILS # (AUTO) 0.1 (0.0-0.4); HEMATOCRIT 35.1 % (34.2-44.1); LYMPHOCYTES # (AUTO) 2.3 (1.0-3.2); LYMPHOCYTES % 38.6 % (18.0-39.1); MEAN CORPUSCULAR HEMOGLOBIN 32.4 pg (28-32); MEAN CORPUSCULAR HGB CONC 31.3 g/dL (31-35); MEAN CORPUSCULAR VOLUME 103.2 fL (81-99); MONOCYTES # (AUTO) 0.4 (0.2-0.8); MONOCYTES % 6.4 % (4.4-11.3); NEUTROPHILS # (AUTO) 3.1 (2.1-6.9); NEUTROPHILS % 51.9 % (38.7-80.0); PLATELET COUNT 211 x10e3/uL (140-360); RED CELL DISTRIBUTION WIDTH 12.3 % (11.7-14.4)
[2021-04-13] VITALS: BP 129/62
[2021-04-13 04:00] VITALS: BP 95/49
[2021-04-13 06:17] LABS: BASOPHILS % 0.5 % (0.0-1.0); EOSINOPHILS # (AUTO) 0.2 (0.0-0.4); EOSINOPHILS % 2.3 % (0.0-6.0); HEMATOCRIT 30.6 % (34.2-44.1); LYMPHOCYTES # (AUTO) 2.4 (1.0-3.2); LYMPHOCYTES % 33.1 % (18.0-39.1); MEAN CORPUSCULAR HGB CONC 32.7 g/dL (31-35); MONOCYTES # (AUTO) 0.4 (0.2-0.8); NEUTROPHILS # (AUTO) 4.2 (2.1-6.9); NEUTROPHILS % 57.8 % (38.7-80.0); PLATELET COUNT 190 x10e3/uL (140-360); RED BLOOD COUNT 3.03 x10e6/uL (3.6-5.1); RED CELL DISTRIBUTION WIDTH 12.5 % (11.7-14.4)
[2021-04-13 06:40] LABS: ALBUMIN 2.7 g/dL (3.5-5.0); ANION GAP 10.2 mmol/L (8-16); CREATININE, SERUM 0.63 mg/dL (0.57-1.11); POTASSIUM 4.2 mmol/L (3.5-5.1)
[2021-04-13] MEDS: SODIUM CHLORIDE 0.9% 1000ML 1,000 ML IV SCH (07:11)
[2021-04-13] MEDS: INSULIN LISPRO 100 UNIT/1 ML 3ML VIAL SQ SCH ×2 (07:30→11:30)
[2021-04-13 07:36] VITALS: BP 105/57
[2021-04-13 08:22] VITALS: BP 105/57
[2021-04-13] MEDS ORDERED: ASCORBIC ACID500 M2 PO (10:11)
[2021-04-13] MEDS ORDERED: FERROUS SULFAT325 M1 PO (10:11)
[2021-04-13] MEDS ORDERED: DOCUSATE SODIU100 MG PO (10:11)
[2021-04-13 11:33] VITALS: BP 102/53
[2021-04-13 15:57] LABS: BASOPHILS % 0.5 % (0.0-1.0); EOSINOPHILS # (AUTO) 0.1 (0.0-0.4); EOSINOPHILS % 1.7 % (0.0-6.0); HEMATOCRIT 35.2 % (34.2-44.1); HEMOGLOBIN 11.1 g/dL (12.0-16.0); LYMPHOCYTES # (AUTO) 2.5 (1.0-3.2); LYMPHOCYTES % 33.3 % (18.0-39.1); MEAN CORPUSCULAR HEMOGLOBIN 32.7 pg (28-32); MEAN CORPUSCULAR HGB CONC 31.5 g/dL (31-35); MEAN CORPUSCULAR VOLUME 103.8 fL (81-99); MONOCYTES # (AUTO) 0.5 (0.2-0.8); MONOCYTES % 6.2 % (4.4-11.3); NEUTROPHILS # (AUTO) 4.4 (2.1-6.9); PLATELET COUNT 229 x10e3/uL (140-360); RED BLOOD COUNT 3.39 x10e6/uL (3.6-5.1); RED CELL DISTRIBUTION WIDTH 12.6 % (11.7-14.4)
== END 2021-04-13 14:09 | disposition home or self-care (01) ==
LOC: ER 13:33 → ERHOLD 15:49 → MED/SURG2 17:59
PROVIDERS: ADMIT Internal Medicine; ATTEND Internal Medicine
DX: K57.31 Diverticulosis of large intestine without perforation or abscess with bleeding (principal); K63.5 Polyp of colon; K64.8 Other hemorrhoids; N39.0 Urinary tract infection, site not specified; Z86.010 Personal history of colon polyps; E11.9 Type 2 diabetes mellitus without complications; Z87.440 Personal history of urinary (tract) infections; E78.5 Hyperlipidemia, unspecified; Z96.653 Presence of artificial knee joint, bilateral; Z88.1 Allergy status to other antibiotic agents; Z88.2 Allergy status to sulfonamides; Z20.822 Contact with and (suspected) exposure to COVID-19
CPT/HCPCS: 36415 ×3; 45385; 71045; 74174; 80053 ×3; 80061; 81001; 82550; 82553; 82948 ×2; 83036; 83735; 84443; 84484; 85025 ×3; 85610 ×2; 85730; 86850; 86900; 86920; 88305; 93005; 96360; 96361; 96372; 99284; C9113 ×3; G0378 ×3; J0696 ×2; J7030 ×3; J7050; Q9967; U0002